=== PATIENT | female | born 1965 | race Caucasian/White ===

== ENCOUNTER → 2017-10-18 | Outpatient (CLI) | payer OTHER | LOC: BMCIMAGING 12:59 | PROVIDERS: ATTEND Emergency Medicine | DX: S62.171A Displaced fracture of trapezium [larger multangular], right wrist, initial encounter for closed fracture (principal); Y93.9 Activity, unspecified ==

== ENCOUNTER 2017-10-19 09:44 | Emergency (ER) | payer OTHER ==
[2017-10-19 09:51] VITALS: RESP 16
[2017-10-19] MEDS ORDERED: ONDANSETRON DISINTEGRATING 4 MG TAB PO ONE ×2 (10:10→11:09)
[2017-10-19] MEDS ORDERED: oxyCODONE IR 5 MG TAB PO ONE (10:10)
--- NOTE | 2017-10-19 10:12 | EDPHY ---
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 PMH: facial abcess x2; ulcerative colitis; partial alopicia; ciliac; hyperthyroid/graves; bechets; vitaligo; paracarditis x4 - Social History Smoking Status: Never smoked Constitutional: Initial Vital Signs Temperature (C) 37.0 C 10/19/17 09:48 Heart Rate 81 10/19/17 09:48 Respiratory Rate 16 10/19/17 09:48 Blood Pressure 113/75 10/19/17 09:48 O2 Sat (%) 97 10/19/17 09:48 O2 Delivery Mode Room Air Allergies/Adverse Reactions: gluten [Gluten] Allergy (Unknown, Verified 08/26/12 09:04) Wheat Containing *RETIRED-06/16/12 [Wheat Containing Prod] Allergy (Unknown, Verified 08/26/12 09:04) oxycodone Allergy (Verified 10/19/17 11:12) Vomiting Sulfa (Sulfonamide Antibiotics) Allergy (Verified 08/26/12 09:04) Home Medications: Medication Instructions Recorded Calcium Carbonate [Oyster Shell 500 mg PO DAILY 04/21/12 Calcium 500 mg (*)] Multivitamins [Multivitamin (*)] 1 each PO DAILY 04/21/12 Zinc Gluconate [Zinc Chelated 50mg 50 mg PO DAILY 08/16/12 (*)] Acetaminophen [Tylenol 325mg (*)] 650 mg PO Q6 PRN #0 tab 08/22/12 Mesalamine [Asacol 400 mg] 1,600 mg PO TID #360 tab 08/22/12 predniSONE 20 mg PO BID #42 tab 08/22/12 Albuterol [Proventil Inhaler HFA 1 - 2 puffs IH Q4PRN PRN #1 mdi 08/12/15 (*)] Aspirin 08/12/15 Codeine/Promethazine [Phenergan W/ 5 ml PO Q6 PRN #1 bottle 08/12/15 Codeine Syrup] IRON 08/12/15 METHIMAZOLE 08/12/15 Hydrocodone/APAP 5/325 [[place] 1 - 2 each PO Q4-6PRN PRN #20 tab 10/19/17 5/325] Ondansetron Odt [Zofran Odt 4 mg 4 mg PO Q4 PRN #10 tab 10/19/17 (RX)] oxyCODONE IR [Oxycodone Ir (*)] 5 - 10 mg PO Q6 PRN #20 tab 10/19/17 Medical Decision Making - Diagnostics Imaging Results: Imaging Impressions Wrist X-Ray 10/19/17 10:11 Impression: Cortical avulsion fracture fragments dorsal to the carpus potentially arising from the lunate or triquetrum, similar to one day earlier. Hand X-Ray 10/19/17 10:32 Impression: 8 mm dorsal cortical avulsion fracture fragment, potentially arising from the lunate (versus triquetrum). Noncontrast CT of the wrist would be of benefit in further evaluation of the donor site as clinically appropriate. Imaging: I viewed and interpreted images myself ED Course/Re-evaluation: CHIEF COMPLAINT: Severe right wrist pain HISTORY OF PRESENT ILLNESS: The patient is a 52 y/o female arriving with her complaining of severe right wrist pain after injuring it yesterday. She tripped and fell on ice landed on her outstretched right arm. Denies head strike or other injuries, weakness, paresthesias. She had pain around her right wrist that she tried to manage at home with NSAIDs and ice without improvement so she went to urgent care. An x-ray there showed a possible fracture and she was placed in a thumbspika splint. Since then she's had waxing and waning pain that is so severe at times she describes screaming and vomiting. She has taken at least 20 pills of ibuprofen in less than 24 hours without any improvement in her pain. She describe pain radiating down her right medial and lateral forearm to elbow and into hand, particularly into 5th finger. REVIEW OF SYSTEMS: A 10 point review of systems was performed and is negative with the exception of the elements mentioned in the history of present illness. PHYSICAL EXAM: HR, BP, O2 Sat, RR. Temp noted General Appearance: Alert, well hydrated, appropriate, and non-toxic appearing. Head: Atraumatic without scalp tenderness or obvious injury Eyes: Pupils equal, round, reactive to light and accommodation, EOMI, no trauma , no injection. Throat: Mucus membranes moist. Neck: Supple Respiratory: No distress Cardiovascular: Right radial pulse intact. Good capillary refill all extremities. Musculoskeletal: Tenderness over right dorsal hand with ecchymosis. Otherwise normal active ROM of all extremities, atraumatic. Neurological: Alert, appropriate, and interactive. The patient has non-focal cranial nerves, motor, sensory, and cerebellar exam. Skin: No rashes, good turgor, no nodules on palpation. PAST MEDICAL HISTORY: Facial abscess x2; ulcerative colitis; partial alopecia; celiac; hyperthyroid/graves; vitiligo; pericarditis x4. PAST SURGICAL HISTORY: Open heart for myxoma tumor removal; hysterectomy; L ankle SOCIAL HISTORY: at bedside. DIAGNOSTICS/PROCEDURES/CRITICAL CARE TIME: Right hand and wrist x-ray: triquetral fracture Procedure: Fracture treatment. The patient had x-rays taken and I confirmed that the patient had a fractured right triquetrum. I do not believe that the patient requires immediate orthopedic consultation, nor do I believe that reduction at a later date will be required. An ortho-glass splint was applied with ample cast padding in a position of function. After application of the splint, I returned and re-examined the patient. The splint was adequately immobilizing the joint and distal to the splint the patient's circulation and sensation was intact. DIFFERENTIAL DIAGNOSIS: The differential diagnosis for the patient's injury included but was not limited to fracture, ligamentous injury, contusion, muscular strain. MEDICAL DECISION MAKING: This is a 52 y/o female who presents with acute right wrist injury secondary to a fall yesterday. She was placed in a thumbspika at urgent care yesterday for possible fracture, but was not given pain medication. She has been unable to control her pain at home and has taken a significant amount of ibuprofen in less than 24 hours in an attempt to address her pain that is likely causing some of her nausea now. She has tenderness and ecchymosis on her dorsal right hand. She is neurovascularly intact. Plan for x-ray to assess for fracture. Possibility of a fracture fragment or nerve injury causing her reported spikes in pain. 10mg OxyIR administered for pain and 4mg PO Zofran. X-ray shows triquetral fracture. Patient will require orthoglass splint that immobilizes her wrist. Reassessed patient after splint placement and discussed standard fracture care and follow up instructions. Script for Vicodin and Zofran. Referral to hand surgery for follow up. Return precautions discussed. - Data Points Medications Given: Discontinued Medications Ondansetron HCl (Zofran Odt) 4 mg PO EDNOW ONE Stop: 10/19/17 10:11 Last Admin: 10/19/17 10:14 Dose: 4 mg Ondansetron HCl (Zofran Odt) 4 mg PO EDNOW ONE Stop: 10/19/17 11:10 Last Admin: 10/19/17 11:10 Dose: 4 mg Oxycodone HCl (Oxycodone Ir) 10 mg PO EDNOW ONE Stop: 10/19/17 10:11 Last Admin: 10/19/17 10:14 Dose: 10 mg Departure - Departure Disposition: Home, Routine, Self-Care Clinical Impression: Triquetral fracture Qualifiers: Encounter type: initial encounter Fracture type: closed Fracture alignment: nondisplaced Laterality: right Qualified Code(s): S62.114A - Nondisplaced fracture of triquetrum [cuneiform] bone, right wrist, initial encounter for closed fracture Condition: Good Instructions: Hand Fracture (ED) Additional Instructions: 1. Take Vicodin as prescribed when needed for pain. 2. Do not use any further ibuprofen for at least several days to weeks. In the future, do not exceed more than 2400mg ibuprofen in a 24 hour period. Increase fluid intake over the next few days so you are urinating every couple hours. 3. Wear sling for comfort. 4. Keep splint in place and dry until cleared by hand specialist. 5. Follow up with hand specialist next week. 6. Use Zofran as prescribed for any nausea or vomiting. 7. Return to the ED for worsening of condition. Referrals: Miladys Cotter MD [[facility] [place] Primary Care Provider] - As per Instructions Manny Herbert MD [Medical Doctor] - As per Instructions Prescriptions: Hydrocodone/APAP 5/325 [Roca 5/325] 1 - 2 each PO Q4-6PRN PRN #20 tab PRN Reason: Pain, Moderate Ondansetron Odt [Zofran Odt 4 mg (RX)] 4 mg PO Q4 PRN #10 tab PRN Reason: Nausea/Vomiting, Use 1st oxyCODONE IR [Oxycodone Ir (*)] 5 - 10 mg PO Q6 PRN #20 tab PRN Reason: Pain, Severe Report Scribed for: Joe Hubbard Report Scribed by: Radha Durham Date of Report: 10/19/17 Time of Report: 11:09
[2017-10-19] MEDS ORDERED: ONDANSETRON DISINTEGRATING 4 MG TAB ONE (11:08)
[2017-10-19 12:18] VITALS: BP 113/62; PULSE 80; TEMP 98.4; O2SAT 96
== END 2017-10-19 12:15 | disposition home or self-care (01) ==
PROC: 2W3EX1Z Immobilization of Right Hand using Splint (ICD-10-PCS; principal; 2017-10-19)
DX: S62.114A Nondisplaced fracture of triquetrum [cuneiform] bone, right wrist, initial encounter for closed fracture (principal); Z79.82 Long term (current) use of aspirin; W01.0XXA Fall on same level from slipping, tripping and stumbling without subsequent striking against object, initial encounter
CPT/HCPCS: A4565

== ENCOUNTER → 2017-10-23 | Outpatient (CLI) | payer OTHER | LOC: BMCIMAGING 14:53 | PROVIDERS: ATTEND Orthopaedic Surgery Hand Surgery | DX: M25.521 Pain in right elbow (principal) ==

== ENCOUNTER 2018-11-30 06:27 | Emergency (ER) | payer OTHER ==
[2018-11-30 06:33] VITALS: BP 126/78
--- NOTE | 2018-11-30 06:52 | EDPHY ---
H & P Time Seen by Provider: 11/30/18 06:52 HPI/ROS: CHIEF COMPLAINT: Left earache HISTORY OF PRESENT ILLNESS: Patient started getting sick about 4 days ago, she said she felt tired and had body aches and had "malaise" mm presented to her primary care physician 2 days ago with a sore throat. She was told she had "tonsil stones" and had a negative strep test. Was treated with ibuprofen and given an amoxicillin prescription which she has taken 2 doses of since last night. Over the last 24 hr her left ear became more painful radiates into her jaw. Associated with nausea. Symptoms severe today, not associated with dental symptoms or headache but with decreased hearing. [place] REVIEW OF SYSTEMS: Eye: no change in vision ENT: HPI Cardiac: no chest pain or syncope Pulmonary: no cough or SOB Abdomen: no vomiting, diarrhea, abdominal pain Musculoskeletal: no back pain Skin: no rash Neuro: no headache Constitutional: no fever : no urinary symptoms A comprehensive 10 point review of systems is otherwise negative aside from elements mentioned in the history of present illness. PAST MEDICAL HISTORY: Includes hypothyroid, myxoma tumor removal, hysterectomy , left ankle surgery. Ulcerative colitis Social history: Lives in [place] General Appearance: Alert and conversant, cooperative. Eyes: No scleral icterus. ENT, Mouth: Left tympanic membrane is swollen and red and bulging. Right 1 is normal. No trismus, pharynx shows slight erythema with 2 1 mm blisters. No exudate, uvula midline, no stridor or drooling, no tonsillar pillar swelling. Respiratory: Normal respiratory effort, breath sounds equal, lungs are clear to auscultation. Cardiovascular: Regular rate and rhythm. Gastrointestinal: Abdomen is soft and non tender. Neurological: Alert, face symmetric, normal motor and sensory in extremities. Skin: Warm and dry, no rashes. Musculoskeletal: Normal range of motion of the neck. Psychiatric: Not agitated. Emergency Department course/MDM: Patient presents with acute left otitis media likely from a viral head cold. She is appropriately taking amoxicillin prescribed by her physician. Recommended decongestant such as Sudafed, hydrocodone 6 for pain and still symptoms are improving (her oxycodone allergy listed is an adverse drug reaction with nausea and vomiting) and Zofran for nausea. Unlikely to have external otitis, epiglottitis, peritonsillar abscess, retropharyngeal abscess. Smoking Status: Never smoked Constitutional: Initial Vital Signs Temperature (C) 37.0 C 11/30/18 06:29 Heart Rate 85 11/30/18 06:29 Respiratory Rate 18 11/30/18 06:29 Blood Pressure 126/78 H 11/30/18 06:29 O2 Sat (%) 99 11/30/18 06:29 O2 Delivery Mode Room Air Allergies/Adverse Reactions: gluten [Gluten] Allergy (Unknown, Verified 11/30/18 06:33) Wheat Containing *RETIRED-06/16/12 [Wheat Containing Prod] Allergy (Unknown, Verified 11/30/18 06:33) oxycodone Allergy (Verified 11/30/18 06:33) Vomiting Sulfa (Sulfonamide Antibiotics) Allergy (Verified 11/30/18 06:33) Home Medications: Medication Instructions Recorded Calcium Carbonate [Oyster Shell 500 mg PO DAILY 04/21/12 Calcium 500 mg (*)] Multivitamins [Multivitamin (*)] 1 each PO DAILY 04/21/12 Zinc Gluconate [Zinc Chelated 50mg 50 mg PO DAILY 08/16/12 (*)] Acetaminophen [Tylenol 325mg (*)] 650 mg PO Q6 PRN #0 tab 08/22/12 Albuterol [Proventil Inhaler HFA 1 - 2 puffs IH Q4PRN PRN #1 mdi 08/12/15 (*)] Aspirin 08/12/15 Codeine/Promethazine [Phenergan W/ 5 ml PO Q6 PRN #1 bottle 08/12/15 Codeine Syrup] IRON 08/12/15 METHIMAZOLE 08/12/15 Hydrocodone/APAP 5/325 [[place] 1 - 2 each PO Q4-6PRN PRN #20 tab 10/19/17 5/325] Ondansetron Odt [Zofran Odt 4 mg 4 mg PO Q4 PRN #10 tab 10/19/17 (RX)] MDM/Departure - MDM Medications Given: Discontinued Medications Hydrocodone Bitart/Acetaminophen ([place] 5/325mg Prepack#6) 1 btl TAKEHOME EDNOW ONE Stop: 11/30/18 07:08 Last Admin: 11/30/18 07:20 Dose: 1 btl Hydrocodone Bitart/Acetaminophen ([place] 5/325) 1 tab PO EDNOW ONE Stop: 11/30/18 07:19 Last Admin: 11/30/18 07:21 Dose: 1 tab Ondansetron HCl (Zofran Odt 4 Mg Prepack#2) 1 btl TAKEHOME EDNOW ONE Stop: 11/30/18 07:08 Last Admin: 11/30/18 07:23 Dose: 1 btl Pseudoephedrine HCl (Sudafed) 30 mg PO EDNOW ONE Stop: 11/30/18 07:08 Last Admin: 11/30/18 07:21 Dose: 30 mg - Depart Disposition: Home, Routine, Self-Care Clinical Impression: Acute otitis media Condition: Good Instructions: Hydrocodone/Acetaminophen (By mouth), Pseudoephedrine (By mouth) , Ondansetron (By mouth), Ear Infection (ED) Additional Instructions: Continue with Sudafed or similar decongestant for the next 48 hr. Follow-up with ear nose and throat physician if not significantly improved by tomorrow. Take your amoxicillin prescription untill finished as prescribed. Referrals: Petra Gomez MD [Primary Care Provider] - As per Instructions Izaiah Urias MD [Medical Doctor] - 1 day, if not improved
[2018-11-30] MEDS ORDERED: PSEUDOEPHEDRINE HCL 30 MG TAB PO ONE (07:07)
[2018-11-30] MEDS ORDERED: ONDANSETRON 4MG PREPACK#2 BTL TAKEHOME ONE (07:07)
[2018-11-30] MEDS ORDERED: HYDROCOD/APAP 5/325 PREPACK#6 BTL TAKEHOME ONE (07:07)
[2018-11-30] MEDS ORDERED: HYDROCODONE/APAP 5/325 TAB PO ONE (07:18)
== END 2018-11-30 07:25 | disposition home or self-care (01) ==
DX: H66.92 Otitis media, unspecified, left ear (principal)

== ENCOUNTER 2018-12-01 19:21 | Inpatient (IN) | payer OTHER ==
--- NOTE | 2018-12-01 19:35 | EDPHY ---
H & P Time Seen by Provider: 12/01/18 19:28 HPI/ROS: HPI: This is a 53-year-old female who presents with Chief Complaint: Dizziness, nausea, vomiting Location: Head Quality: Dizziness Duration: 48 hr Signs and Symptoms: no fever,+ nausea, +vomiting, no diarrhea, no urinary symptoms, no chest pain, no shortness of breath, no wheezing, no cough, +sore throat, no neck stiffness, no joint pain, no swollen glands, + left ear pain, no rash, no aura Timing: Acute, worsening Severity: Severe Context: Patient presents for the 3rd time to the emergency room in the last few days with complaints of left ear pain with clear ear drainage, dizziness described as the room spinning, left-sided temporal headache. Over the last 48 hr the dizziness has worsened to the point that she has nausea and is now dry heaving. She is unable to eat or drink anything in the last 48 hr. She was seen by her primary care provider on Saturday with a negative rapid strep it started on amoxicillin, salt water gargle. She did not start the amoxicillin as she is waiting for the throat culture to result. Yesterday she was seen in this emergency room with worsening left ear pain, dizziness, continued sore throat. She was diagnosed with left otitis media and advised to start taking amoxicillin and Sudafed. She reports that since taking these medications she has had no relief of her symptoms and affect her symptoms are worsening. She even called the Sudafed company to see if Sudafed could cause her nausea, vomiting and ear pain and even could worsen her hyperthyroidism. Patient's last dose of amoxicillin was yesterday. Modifying Factors: See above Comment: ROS: A comprehensive 10 system review of systems is otherwise negative aside from elements mentioned in the history of present illness. MEDICAL/SURGICAL/SOCIAL HISTORY: PSH: open heart for myxoma tumor removal; hysterectomy; L ankle; PMH: facial abcess x2; ulcerative colitis; partial alopicia; ciliac; hyperthyroid/graves; bechets; vitaligo; paracarditis x4, graves dx Social history: . Never smoked. Family history noncontributory. CONSTITUTIONAL: Nontoxic-appearing, lying in the room with the lights off on her left side, cool rag on her forehead, dry heaving into an emesis basin, awake and alert, mild distress HEENT: Atraumatic and normocephalic, PERRL, EOMI. Nares patent; no rhinorrhea; no nasal mucosal edema. Left TM shows effusion but no perforation. Right TM is clear. Oropharynx clear, tonsils 1+ without hypertrophy or erythema, no exudate, uvula midline, moist pink mucosa. Airway patent. No lymphadenopathy. No meningismus. Cardiovascular: Normal S1/S2, regular rate, regular rhythm, without murmur rub or gallop. PULMONARY/CHEST: Symmetrical and nontender. Clear to auscultation bilaterally. Good air movement. No accessory muscle usage. ABDOMEN: Soft, nondistended, nontender, no rebound, no guarding, no peritoneal signs, no masses or organomegaly. No CVAT. EXTREMITIES: 2/2 pulses, strength 5/5, no deformities, no clubbing, no cyanosis or edema. NEUROLOGICAL: no focal neuro deficits. GCS 15. SKIN: Warm and dry, no erythema. no rash. Good capillary refill. Source: Patient Exam Limitations: No limitations - Medical/Surgical History Hx Asthma: No Hx Chronic Respiratory Disease: No Hx Diabetes: No Hx Cardiac Disease: No Hx Renal Disease: No Hx Cirrhosis: No Hx Alcoholism: No Hx HIV/AIDS: No Hx Splenectomy or Spleen Trauma: No Other PMH: PSH: open heart for myxoma tumor removal; hysterectomy; L ankle;. PMH: facial abcess x2; ulcerative colitis; partial alopicia; ciliac; hyperthyroid/graves; bechets; vitaligo; paracarditis x4, graves dx - Social History Smoking Status: Never smoked Constitutional: Initial Vital Signs Temperature (C) 36.7 C 12/01/18 19:28 Heart Rate 70 12/01/18 19:28 Respiratory Rate 16 12/01/18 19:28 Blood Pressure 107/58 L 12/01/18 19:28 O2 Sat (%) 99 12/01/18 19:28 O2 Delivery Mode Room Air Allergies/Adverse Reactions: gluten [Gluten] Allergy (Unknown, Verified 12/01/18 19:26) Wheat Containing *RETIRED-06/16/12 [Wheat Containing Prod] Allergy (Unknown, Verified 12/01/18 19:26) amoxicillin Allergy (Verified 12/01/18 19:27) oxycodone Allergy (Verified 12/01/18 19:26) Vomiting Sulfa (Sulfonamide Antibiotics) Allergy (Verified 12/01/18 19:26) Home Medications: Medication Instructions Recorded Calcium Carbonate [Oyster Shell 500 mg PO DAILY 04/21/12 Calcium 500 mg (*)] Multivitamins [Multivitamin (*)] 1 each PO DAILY 04/21/12 Zinc Gluconate [Zinc Chelated 50mg 50 mg PO DAILY 08/16/12 (*)] Acetaminophen [Tylenol 325mg (*)] 650 mg PO Q6 PRN #0 tab 08/22/12 Albuterol [Proventil Inhaler HFA 1 - 2 puffs IH Q4PRN PRN #1 mdi 08/12/15 (*)] Aspirin 08/12/15 Codeine/Promethazine [Phenergan W/ 5 ml PO Q6 PRN #1 bottle 08/12/15 Codeine Syrup] IRON 08/12/15 METHIMAZOLE 08/12/15 Hydrocodone/APAP 5/325 [[place] 1 - 2 each PO Q4-6PRN PRN #20 tab 10/19/17 5/325] Ondansetron Odt [Zofran Odt 4 mg 4 mg PO Q4 PRN #10 tab 10/19/17 (RX)] Medical Decision Making - Diagnostics Imaging Results: Imaging Impressions Head CT 12/01/18 19:53 Impression: 1. Negative for intracranial abnormality. 2. Chronic appearing sinusitis. Results called and discussed with Tamar SUAREZ on 12/01/2018 at 20:39. ED Course/Re-evaluation: Vital signs reviewed and stable upon arrival. No systemic signs. Placed on ekg monitor. IV access, laboratory studies, head CT scan ordered Given 1 L normal saline, IV Ativan 1 mg and IV Zofran 4 mg 2039: By Radiology, Dr. Sifuentes, who reports that head CT scan shows no acute intracranial process. Does show chronic bilateral maxillary sinus disease. 2133: Reassessed patient is sleeping soundly. No further episodes of vomiting. Vital signs remained stable. Given another 1 L normal saline, PO Augmentin and p.o. Meclizine 12.5 mg Augmentin ordered but patient state Amoxicillin allergy now. PO Azithromycin given for prophylaxis left otitis/sinus disease 0: TSH low normal 2250: Road test performed by [employer]. Patient unable to ambulate without moderate assistance and complained of nausea and dizziness. 2305: ED decision to consult hospitalist for viral labyrinthitis, eustachian tube dysfunction, vertigo is secondary to inner ear disease, intractable nausea and vomiting. Spoke with [facility] who kindly agrees to admit patient and provide further care. This patient was seen under the supervision of my secondary supervising physician. I evaluated care for this patient with attending. Discussed this patient with Dr. Hubbard. Differential Diagnosis: Dizziness including but not limited to peripheral and central causes of vertigo , orthostatic causes including dehydration, and blood loss. - Data Points Laboratory Results: Laboratory Results 12/01/18 19:35 12/01/18 19:35 12/01/18 12/01/18 12/01/18 19:35 19:35 19:35 WBC 11.19 10^3/uL H 10^3/uL (3.80-9.50) RBC 4.95 10^6/uL 10^6/uL (4.18-5.33) Hgb 13.3 g/dL g/dL (12.6-16.3) Hct 40.8 % % (38.0-47.0) MCV 82.4 fL fL (81.5-99.8) MCH 26.9 pg L pg (27.9-34.1) MCHC 32.6 g/dL g/dL (32.4-36.7) RDW 12.7 % % (11.5-15.2) Plt Count 295 10^3/uL 10^3/uL (150-400) MPV 10.2 fL fL (8.7-11.7) Neut % (Auto) 81.0 % H % (39.3-74.2) Lymph % (Auto) 12.2 % L % (15.0-45.0) Cass % (Auto) 6.3 % % (4.5-13.0) Eos % (Auto) 0.0 % L % (0.6-7.6) Baso % (Auto) 0.1 % L % (0.3-1.7) Nucleat RBC Rel Count 0.0 % % (0.0-0.2) Absolute Neuts (auto) 9.07 10^3/uL H 10^3/uL (1.70-6.50) Absolute Lymphs (auto) 1.36 10^3/uL 10^3/uL (1.00-3.00) Absolute Monos (auto) 0.71 10^3/uL 10^3/uL (0.30-0.80) Absolute Eos (auto) 0.00 10^3/uL L 10^3/uL (0.03-0.40) Absolute Basos (auto) 0.01 10^3/uL L 10^3/uL (0.02-0.10) Absolute Nucleated RBC 0.00 10^3/uL 10^3/uL (0-0.01) Immature Gran % 0.4 % % (0.0-1.1) Immature Gran # 0.04 10^3/uL 10^3/uL (0.00-0.10) Sodium 132 mEq/L L mEq/L (135-145) Potassium 4.2 mEq/L mEq/L (3.5-5.2) Chloride 97 mEq/L mEq/L (97-110) Carbon Dioxide 25 mEq/l mEq/l (22-31) Anion Gap 10 mEq/L mEq/L (6-14) BUN 15 mg/dL mg/dL (7-23) Creatinine 0.6 mg/dL mg/dL (0.6-1.0) Estimated GFR > 60 Glucose 113 mg/dL H mg/dL (70-100) Calcium 9.7 mg/dL mg/dL (8.5-10.4) TSH 0.162 uIU/mL L uIU/mL (0.465-4.680) Beta HCG, Qual NEGATIVE Medications Given: Discontinued Medications Azithromycin (Zithromax) 500 mg PO EDNOW ONE PRN Reason: Protocol Stop: 12/01/18 21:57 Last Admin: 12/01/18 22:24 Dose: 500 mg Sodium Chloride (Ns) 1,000 mls @ 0 mls/hr IV ONCE ONE; Wide Open PRN Reason: Protocol Stop: 12/01/18 19:53 Last Admin: 12/01/18 20:00 Dose: 1,000 mls Sodium Chloride (Ns) 1,000 mls @ 0 mls/hr IV EDNOW ONE; Wide Open PRN Reason: Protocol Stop: 12/01/18 21:29 Last Admin: 12/01/18 21:32 Dose: 1,000 mls Lorazepam (Ativan Injection) 1 mg IVP EDNOW ONE Stop: 12/01/18 19:53 Last Admin: 12/01/18 19:58 Dose: 1 mg Meclizine HCl (Meclizine Hcl) 12.5 mg PO EDNOW ONE Stop: 12/01/18 21:29 Last Admin: 12/01/18 21:32 Dose: 12.5 mg Ondansetron HCl (Zofran) 4 mg IVP EDNOW ONE Stop: 12/01/18 19:53 Last Admin: 12/01/18 19:58 Dose: 4 mg Departure - Departure Disposition: [facility] Inpatient Acute Clinical Impression: Dysfunction of left eustachian tube, Vertigo of central origin of left ear Intractable nausea and vomiting Qualifiers: Vomiting type: unspecified Qualified Code(s): R11.2 - Nausea with vomiting, unspecified Condition: Fair
[2018-12-01] MEDS ORDERED: LORazepam 2 MG/ML INJ IVP ONE (19:52)
[2018-12-01] MEDS ORDERED: NS 1,000 ML IV ONE ×2 (19:52→21:28)
[2018-12-01] MEDS ORDERED: ONDANSETRON 4 MG/2 ML VIAL IVP ONE (19:52)
[2018-12-01 20:03] LABS: PLATELET COUNT 295 10^3/uL (150-400)
[2018-12-01] MEDS ORDERED: MECLIZINE HCL 25 MG TAB PO ONE (21:28)
[2018-12-01] MEDS ORDERED: AZITHROMYCIN 250 MG TAB PO ONE (21:56)
[2018-12-01] MEDS ORDERED: ONDANSETRON DISINTEGRATING 4 MG TAB PO PRN (23:04)
[2018-12-01] MEDS ORDERED: PROMETHAZINE HCL 25 MG/ML INJ IVP PRN (23:04)
[2018-12-02] MEDS: NS 1,000 ML IV SCH ×2 (00:25→09:57)
--- NOTE | 2018-12-02 00:36 | PDGENHP ---
History and Physical - Chief Complaint Dizziness, nausea - History of Present Illness 53 yo F w/ hx of hyperthyroidism presents with dizziness and nausea. The patient has had URI symptoms for several days (sore throat, malaise). Then 2 days ago she developed L ear pain. She was seen in the ED and diagnosed with L otitis media. She started amoxicillin and pseudoephedrine for this but the became very dizzy and nauseous. This persisted for 24 hours so she came to the ED for evaluation. In the ED she continues to be dizzy, although symptoms improved with anti-emetics. CT head was unremarkable. She is being admitted for supportive care of presumed viral labyrinthitis. Case discussed with ED DANIELA Shay; records reviewed and summarized above. History Information - Allergies/Home Medication List Allergies/Adverse Reactions: gluten [Gluten] Allergy (Unknown, Verified 12/01/18 19:26) Wheat Containing *RETIRED-06/16/12 [Wheat Containing Prod] Allergy (Unknown, Verified 12/01/18 19:26) amoxicillin Allergy (Verified 12/01/18 19:27) oxycodone Allergy (Verified 12/01/18 19:26) Vomiting Sulfa (Sulfonamide Antibiotics) Allergy (Verified 12/01/18 19:26) Home Medications: Calcium Carbonate [Oyster Shell Calcium 500 mg (*)] 500 mg PO DAILY 04/21/12 [ Last Taken 08/02/12] Multivitamins [Multivitamin (*)] 1 each PO DAILY 04/21/12 [Last Taken 08/02/12] Zinc Gluconate [Zinc Chelated 50mg (*)] 50 mg PO DAILY 08/16/12 [Last Taken 07/18] Aspirin 08/12/15 [Last Taken Unknown] IRON 08/12/15 [Last Taken Unknown] METHIMAZOLE 08/12/15 [Last Taken Unknown] I have personally reviewed and updated: family history, medical history - Past Medical History Additional medical history: Hyperthyroid - Surgical History Additional surgical history: Myxoma resection. Sinus surgery - Family History Additional family history: Asked, denies - Social History Smoking Status: Never smoked Review of Systems Review of Systems: ROS: 10pt was reviewed & negative except for what was stated in HPI & below Physical Exam Physical Exam: Temp Pulse Resp BP Pulse Ox 36.9 C 79 16 99/54 L 94 12/02/18 00:22 02/26/19 00:22 12/02/18 00:22 12/02/18 00:22 12/02/18 00:22 Constitutional: appears nourished, uncomfortable Eyes: PERRL, EOMI Ears, Nose, Mouth, Throat: moist mucous membranes, no oral mucosal ulcers Cardiovascular: regular rate and rhythym Respiratory: no respiratory distress, clear to auscultation Gastrointestinal: normoactive bowel sounds, soft, non-tender abdomen Skin: warm, normal color Musculoskeletal: full muscle strength, no muscle tenderness Neurologic: AAOx3, CN II-XII Intact Psychiatric: interacting appropriately, not anxious Lab Data & Imaging Review 12/01/18 19:35 12/01/18 19:35 WBC 11.19 10^3/uL (3.80-9.50) H 12/01/18 19:35 RBC 4.95 10^6/uL (4.18-5.33) 12/01/18 19:35 Hgb 13.3 g/dL (12.6-16.3) 12/01/18 19:35 Hct 40.8 % (38.0-47.0) 12/01/18 19:35 MCV 82.4 fL (81.5-99.8) 12/01/18 19:35 MCH 26.9 pg (27.9-34.1) L 12/01/18 19:35 MCHC 32.6 g/dL (32.4-36.7) 12/01/18 19:35 RDW 12.7 % (11.5-15.2) 12/01/18 19:35 Plt Count 295 10^3/uL (150-400) 12/01/18 19:35 MPV 10.2 fL (8.7-11.7) 12/01/18 19:35 Neut % (Auto) 81.0 % (39.3-74.2) H 12/01/18 19:35 Lymph % (Auto) 12.2 % (15.0-45.0) L 12/01/18 19:35 Edmunds % (Auto) 6.3 % (4.5-13.0) 12/01/18 19:35 Eos % (Auto) 0.0 % (0.6-7.6) L 12/01/18 19:35 Baso % (Auto) 0.1 % (0.3-1.7) L 12/01/18 19:35 Nucleat RBC Rel Count 0.0 % (0.0-0.2) 12/01/18 19:35 Absolute Neuts (auto) 9.07 10^3/uL (1.70-6.50) H 12/01/18 19:35 Absolute Lymphs (auto) 1.36 10^3/uL (1.00-3.00) 12/01/18 19:35 Absolute Monos (auto) 0.71 10^3/uL (0.30-0.80) 12/01/18 19:35 Absolute Eos (auto) 0.00 10^3/uL (0.03-0.40) L 12/01/18 19:35 Absolute Basos (auto) 0.01 10^3/uL (0.02-0.10) L 12/01/18 19:35 Absolute Nucleated RBC 0.00 10^3/uL (0-0.01) 12/01/18 19:35 Immature Gran % 0.4 % (0.0-1.1) 12/01/18 19:35 Immature Gran # 0.04 10^3/uL (0.00-0.10) 12/01/18 19:35 Sodium 132 mEq/L (135-145) L 12/01/18 19:35 Potassium 4.2 mEq/L (3.5-5.2) 12/01/18 19:35 Chloride 97 mEq/L (97-110) 12/01/18 19:35 Carbon Dioxide 25 mEq/l (22-31) 12/01/18 19:35 Anion Gap 10 mEq/L (6-14) 12/01/18 19:35 BUN 15 mg/dL (7-23) 12/01/18 19:35 Creatinine 0.6 mg/dL (0.6-1.0) 12/01/18 19:35 Estimated GFR > 60 12/01/18 19:35 Glucose 113 mg/dL (70-100) H 12/01/18 19:35 Calcium 9.7 mg/dL (8.5-10.4) 12/01/18 19:35 TSH 0.162 uIU/mL (0.465-4.680) L 12/01/18 19:35 Beta HCG, Qual NEGATIVE 12/01/18 19:35 Imaging Review: Imaging Impressions Head CT 12/01/18 19:53 Impression: 1. Negative for intracranial abnormality. 2. Chronic appearing sinusitis. Results called and discussed with Tamar SUAREZ on 12/01/2018 at 20:39. Assessment & Plan Assessment: 53 yo F presents with dizziness and nausea after recent diagnosis of L otitis media. Plan: 1. Vertigo - Likely viral, vestibular neuritis noting recent URI symptoms. CT head on admission unremarkable. - Admit for observation - mIVF, anti-emetics, meclizine PRN 2. L otitis media - Diagnosed during ED visit 11/30. Her TM remains mildly erythematous on my exam. - Amoxicillin changed to azithromycin today due to difficulty tolerating the medication - Will continue azithromycin to finish 5 day course 3. Hyperthyroid - Continue methimazole pending reconciliation Diet - Clears, mIVF, ADAT Code - Full Ppx - LMWH Dispo - Admit under observation status
[2018-12-02] MEDS: ACETAMINOPHEN 325 MG TAB PO PRN ×2 (04:59→20:26)
[2018-12-02 05:08] LABS: PLATELET COUNT 284 10^3/uL (150-400)
--- NOTE | 2018-12-02 09:10 | HOSPPROG ---
Hospitalist Progress Note Assessment/Plan: DIAGNOSES: * Acute infectious vestibulitis with vertigo nausea vomiting * Otitis media, complicated by tympanic membrane perforation * Upper respiratory infection * Laryngitis * Microcytic anemia with suspicion for iron deficiency PLANS: * Continue current antibiotic * Continue meclizine * Will add some prednisone at this time * ENT consult * Encouraged her to whisper and minimize speaking due to laryngitis * Will check iron levels in the morning and recheck her hemoglobin * Due to ongoing significant vertigo and nausea will continue to manage here in the hospital at least 1 more night, change to inpatient SUBJECTIVE: Less vertigo and nausea so far today but still with significant symptoms requiring medication, has not attempted walking or eating or drinking Mentions fluid draining from her left ear at this point Ear pain somewhat decreased but still present Has developed hoarse voice OBJECTIVE Vitals reviewed: 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 without fever 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, my review: Exam: alert oriented looks very tired Still with nystagmus Looks fairly uncomfortable due to vertigo nausea Hypophonia related to laryngitis is very obvious skin warm dry color ok resps not labored lungs clear BSs heart regular Abdomen normal iv site ok Lab data: White blood cell count remains elevated 10.5, predominance of neutrophils Hemoglobin decreased at 11.4 and is microcytic at 81 MCV Basic metabolic panel is unremarkable Objective: Vital Signs Temp Pulse Resp BP Pulse Ox 36.7 C 76 16 96/60 L 96 12/02/18 07:53 12/02/18 07:53 12/02/18 07:53 12/02/18 07:53 12/02/18 07:53 Laboratory Results 12/02/18 04:33 12/02/18 04:33 12/01/18 12/02/18 12/03/18 06:59 06:59 06:59 Intake Total 3150 Balance 3150 ICD10 Worksheet Patient Problems: Problems Problem Status Onset Dysfunction of left eustachian tube Acute Intractable nausea and vomiting Acute Vertigo of central origin of left ear Acute
[2018-12-02] MEDS: ENOXAPARIN 40 MG/0.4 ML SYR SC SCH (09:46)
[2018-12-02] MEDS: AZITHROMYCIN 250 MG TAB PO SCH (09:46)
[2018-12-02] MEDS: predniSONE 20 MG TAB PO SCH (09:46)
--- NOTE | 2018-12-02 12:29 | ASMTCMCOM ---
CM Note CM Note Notes: Patient plan of care reviewed in rounds. She is still symptomatic from her URI and ear infection. Refused am meclizine but still has some c/o dizziness, No current needs identified as she lives independent with her . Plan: Likely home no needs when medically cleared for discharge. Date Signed: 12/02/2018 12:28 PM Electronically Signed By:Doris Ferrari RN
[2018-12-02] MEDS: MECLIZINE HCL 12.5 MG TAB PO PRN (14:49)
[2018-12-03] MEDS: NS 1,000 ML IV SCH ×2 (02:00→22:33)
[2018-12-03] MEDS: ACETAMINOPHEN 325 MG TAB PO PRN ×2 (08:00→20:37)
[2018-12-03] MEDS: ENOXAPARIN 40 MG/0.4 ML SYR SC SCH (08:59)
[2018-12-03] MEDS: predniSONE 20 MG TAB PO SCH (09:00)
[2018-12-03] MEDS: ASPIRIN 81 MG CHEWABLE TAB PO SCH (09:00)
[2018-12-03] MEDS: MULTIVITAMINS 1 EACH TAB PO SCH (09:00)
[2018-12-03] MEDS: AZITHROMYCIN 250 MG TAB PO SCH (09:00)
[2018-12-03] MEDS: METHIMAZOLE 5 MG TAB PO SCH (09:02)
[2018-12-03] MEDS: MECLIZINE HCL 12.5 MG TAB PO PRN (10:07)
--- NOTE | 2018-12-03 12:59 | PDMN ---
Medical Necessity Medical necessity: Change to inpt as of 12/02/18 @ 18:14, pt meets inpt criteria per MD order and Head and Neck Disease [facility]. 53 y/o admitted w/acute vestibulitis w/vertigo, nausea, and vomiting, otitis media complicated by tympanic membrane perf, URI, and microcytic anemia w/susp iron deficiency. Upgraded to inpt for ongoing symptoms of vertigo, nausea, and pain requiring meds. Est LOS>2MN for ongoing management of above.
--- NOTE | 2018-12-03 16:42 | PDDCSUM ---
Discharge Summary Discharge Summary: DISCHARGE DIAGNOSES: * Acute severe vertigo * Acute otitis media * Perforated left tympanic membrane * Viral upper respiratory tract infection * Intractable nausea vomiting * Dehydration\ HOSPITAL COURSE SUMMARY: This patient initially developed upper respiratory infection type symptoms with some mild pharyngitis but eventually developed some significant left ear pain, severe vertigo with intractable nausea vomiting in inability to ambulate safely. She came into the ER and was admitted the hospital. She had been treated initially with some amoxicillin outpatient a but was changed to azithromycin here. In the hospital she started having significant purulent drainage from her left auditory canal along with some improvement in her pain and vertigo. His presume she has a perforated tympanic membrane. She continued on treatment here with decongestants and prednisone and antibiotics and her symptoms have improved remarkably. She is still dizzy but she is able to walk without difficulty at this time. She is eating and drinking and not requiring antiemetics. She has minimal ear discomfort, mild left ear tinnitus, and mild non vertiginous dizziness. She appears stable for discharge from the hospital at this time. I have arranged for her to have an appointment tomorrow at [facility]. I have instructed her to avoid driving, avoid being on ladders or moves or other places from which she might fall. I have instructed her to be very careful on slippery surfaces such as icy or snowy surfaces or what floors. PENDING TEST RESULTS: None MEDICATION CHANGES: Addition of Nabil-Synephrine nasal spray for the next 3 days Addition of a azithromycin 250 mg daily for 2 days further Addition of prednisone 20 mg daily for 3 days further FOLLOW-UP PLAN: ENT Clinic tomorrow morning and with primary care as needed Greater than 35 minutes bedside and care coordination time today
--- NOTE | 2018-12-03 21:50 | HOSPPROG ---
Hospitalist Progress Note Assessment/Plan: On my intial visit with the patient today she felt stable for DC to home, but on further ambulation she felt still unsteady on her feet with dysequilibrium. She did not feel safe for discharge to home, nor confident she would be able to avoid a need to come to ER for care during night. 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, my review: Exam: alert oriented looks very tired Still with nystagmus Looks fairly uncomfortable due to vertigo nausea Hypophonia related to laryngitis is very obvious skin warm dry color ok resps not labored lungs clear BSs heart regular Abdomen normal iv site ok Objective: Vital Signs Temp Pulse Resp BP Pulse Ox 36.6 C 67 16 105/72 96 12/03/18 19:47 12/03/18 20:45 12/03/18 19:47 12/03/18 20:45 12/03/18 19:47 12/02/18 12/03/18 12/04/18 06:59 06:59 06:59 Intake Total 1500 Balance 1500 - Time Spent With Patient Time Spent with Patient: greater than 35 minutes Time Spent with Patient: Greater than 35 minutes spent on this patients care, greater than 50% of time spent counseling, educating, and coordinating care regarding the above mentioned plan. ICD10 Worksheet Patient Problems: Problems Problem Status Onset Dysfunction of left eustachian tube Acute Intractable nausea and vomiting Acute Vertigo of central origin of left ear Acute
[2018-12-04] MEDS: ACETAMINOPHEN 325 MG TAB PO PRN ×2 (07:53→20:22)
[2018-12-04] MEDS: NS 1,000 ML IV SCH ×2 (07:54→20:23)
[2018-12-04] MEDS: predniSONE 20 MG TAB PO SCH (08:50)
[2018-12-04] MEDS: ASPIRIN 81 MG CHEWABLE TAB PO SCH (08:50)
[2018-12-04] MEDS: METHIMAZOLE 5 MG TAB PO SCH (08:51)
[2018-12-04] MEDS: MULTIVITAMINS 1 EACH TAB PO SCH (08:51)
[2018-12-04] MEDS: ENOXAPARIN 40 MG/0.4 ML SYR SC SCH (08:52)
[2018-12-04] MEDS: AZITHROMYCIN 250 MG TAB PO SCH (08:54)
[2018-12-04] MEDS: AMOXICILLIN/CLAVULANATE POT 875/125 MG TAB PO SCH (20:22)
--- NOTE | 2018-12-04 21:18 | HOSPPROG ---
Hospitalist Progress Note Assessment/Plan: DIAGNOSES: * Acute RUE abdominal pain onset today with tenderness in right upper quadrant; concern for acalculous cholecystitis * Acute infectious vestibulitis with vertigo nausea vomiting * Otitis media, complicated by tympanic membrane perforation and acute hearing loss left ear * Upper respiratory infection * Laryngitis * Iron deficiency anemia, no noted bleeding, history of ulcerative colitis and celiac disease on celiac diet, status post hysterectomy years ago. Unclear if this is due to GI losses or malabsorption. She was seen in the ENT clinic today and they agreed with the diagnoses here but have recommended increasing her steroid and changing to Augmentin Regarding Augmentin there is a an amoxicillin allergy listed but when I question the patient there is really not a very good story for any penicillin allergy, and she did take 2 days of Augmentin just before this admission without any rash hives or other allergic type response. PLANS: * I have ordered a HIDA scan but this will not be able to be done until tomorrow due to availability of tracer; follow closely for signs of infection, though she is on antibiotics here at this time; if HIDA scan abnormal may need to recommend cholecystectomy at this time with possibility of acalculous cholecystitis * Changed to Augmentin for antibiotic * Increase prednisone to 60 mg daily at this time * Recommend she follow up with her waistline joiner overlock in the outpatient clinic to determine why she remains iron deficient and determine whether she can be treated with supplements or will need IV replacement, or if there is more specific or aggressive treatment needed for 1 of her bowel issues Seen by me on hospitals rounds and multidisciplinary rounds today SUBJECTIVE: Today she complains of new onset of right upper quadrant abdominal pain with some anorexia and mild nausea No fever Still some earache, left ear tinnitus, decreased hearing left ear, drainage from left ear Vertigo remains minimal with some mild dizziness but is ambulating well I reviewed the patient her abnormal iron studies. She tells me that she has a history of both ulcerative colitis and biopsy documented celiac disease. She has been very meticulous about her celiac diet, and has not had any other symptoms of celiac disease for some time. She has not noticed any bleeding from her gut and has had a hysterectomy 5 years ago. She did have colonoscopy and upper endoscopy apparently within the last year. OBJECTIVE Vitals reviewed: Stable without fever Intelligence Engineer, my review: Exam: alert oriented better energy today Nystagmus resolved Hypophonia resolved skin warm dry color ok resps not labored lungs clear BSs heart regular Abdomen focal tenderness with guarding but no rebound or mass in the right upper quadrant, bowel sounds present iv site ok Laboratory data: Order liver panel which is now been done and is normal Imaging: I ordered abdominal ultrasound which showed diffuse gallbladder wall thickening without gallstones Objective: Vital Signs Temp Pulse Resp BP Pulse Ox 36.6 C 60 16 117/77 95 12/04/18 19:18 12/04/18 19:18 12/04/18 19:18 12/04/18 19:18 12/04/18 19:18 12/03/18 12/04/18 12/05/18 06:59 06:59 06:59 Intake Total 1900 1000 Balance 1900 1000 - Time Spent With Patient Time Spent with Patient: greater than 35 minutes Time Spent with Patient: Greater than 35 minutes spent on this patients care, greater than 50% of time spent counseling, educating, and coordinating care regarding the above mentioned plan. ICD10 Worksheet Patient Problems: Problems Problem Status Onset Dysfunction of left eustachian tube Acute Intractable nausea and vomiting Acute Vertigo of central origin of left ear Acute
[2018-12-04] MEDS: MELATONIN 3 MG TAB PO SCH (23:00)
[2018-12-05] MEDS: METHIMAZOLE 5 MG TAB PO SCH (09:42)
[2018-12-05] MEDS: AMOXICILLIN/CLAVULANATE POT 875/125 MG TAB PO SCH ×2 (09:43→21:45)
[2018-12-05] MEDS: NS 1,000 ML IV SCH (09:46)
[2018-12-05] MEDS: predniSONE 20 MG TAB PO SCH (10:35)
[2018-12-05] MEDS: ONDANSETRON 4 MG/2 ML VIAL IVP PRN ×2 (10:49→18:53)
[2018-12-05] MEDS: ENOXAPARIN 40 MG/0.4 ML SYR SC SCH (15:01)
[2018-12-05] MEDS: ASPIRIN 81 MG CHEWABLE TAB PO SCH (15:01)
[2018-12-05] MEDS: MULTIVITAMINS 1 EACH TAB PO SCH (15:02)
[2018-12-05] MEDS ORDERED: BUPIVACAINE 0.5% 30 ML SDV ONE (15:14)
[2018-12-05] MEDS ORDERED: LR 1,000 ML IV ONE (15:30)
[2018-12-05] MEDS ORDERED: ceFAZolin 2 GM/DEXTROSE 100 ML IV ONE (15:30)
--- NOTE | 2018-12-05 16:01 | GCON ---
[f rep st] CONSULTATION SURGICAL CONSULT NOTE DATE OF CONSULTATION: 12/05/2018 CHIEF COMPLAINT: Right upper quadrant pain. HISTORY OF PRESENT ILLNESS: 53 year old woman who was initially admitted for for intractable nausea and vomiting and dizziness associated with acute infectious vestibulitis. She has also been diagnosed with otitis media, complicated by tympanic membrane perforation. She then developed acute onset right upper quadrant abdominal pain that started Saturday night after dinner but persisted into the next morning. She reports her right upper quadrant epigastric area is tender to palpation and distended. She has mild nausea, normal bowel movements. She has never had any similar prior episodes. Blood work shows a normal liver panel. Abdominal ultrasound shows diffuse gallbladder wall thickening with no cholelithiasis. HIDA scan reveals chronic cholecystitis. No obstruction of gallbladder. She is currently on Augmentin and prednisone. PREVIOUS MEDICAL HISTORY: Significant for hyperthyroid; ulcerative colitis, in remission; and celiac disease. PREVIOUS SURGICAL HISTORY: Myxoma resection, hysterectomy. FAMILY HISTORY: Diabetes mellitus on mother's side. Father with kidney disease status post kidney transplant. SOCIAL HISTORY: Never smoker. MEDICATIONS: Methimazole; 81 mg aspirin daily. ALLERGIES: Amoxicillin, oxycodone, sulfa, gluten. PHYSICAL EXAM: GENERAL: Well groomed, well-nourished woman in no apparent distress sitting in chair. HEENT: Mucous membranes moist. Normocephalic, atraumatic. No gross hearing deficits. Eyes: Sclerae anicteric, pupils equal in size. LUNGS: Clear to auscultation bilaterally. No rhonchi, wheezes, or rales. No increased work of breathing. CARDIOVASCULAR: Heart rate regular and no peripheral edema. ABDOMEN: Right upper quadrant epigastric area distended, firm, tender to palpation. Positive bowel sounds. SKIN: Warm and dry. MUSCULOSKELETAL: Normal gait. Normal nails. PSYCH: Normal affect and mood. NEURO: Grossly intact. ASSESSMENT AND PLAN: This is a 53-year-old woman with acute right upper quadrant pain. Imaging is consistent with chronic cholecystitis. After surgical consult with the patient, agreed that moving forward with surgery today to remove her gallbladder will alleviate her symptoms. I discussed the risks of surgery including, but not limited to, stroke, heart attack, , and blood clots. We also discussed that she could have an infection, superficial or deep, bleeding, possibility of converting to open, damage to surrounding structures such as the bowel or blood vessels, or damage to the bile duct. Some complications require further intervention including reconstructive surgery. She had her questions answered to her satisfaction and signed the informed consent. Surgery is scheduled for this afternoon. /[id number]/MODL MTDD
--- NOTE | 2018-12-05 16:09 | ASMTCMCOM ---
CM Note CM Note Notes: Patient discussed in medical rounds. Imaging returned consistent with chronic cholecystitis resulting in lap/cornelia later today. CM to follow. Discharge plan: TBD Date Signed: 12/05/2018 04:08 PM Electronically Signed By:Loreto Mota
--- NOTE | 2018-12-05 16:30 | POSTANESTH ---
Post Anesthetic Evaluation Cardiovascular Status: Normal, Stable Respiratory Status: Normal, Stable Level of Consciousness/Mental Status: Can Participate in Eval, Mildly Sleepy, Arousable Pain Control: Adequate, Prn Tx Ordered Nausea/Vomiting Control: Inadeq, Add Tx Reqired Complications Possibly Related to Anesthesia: None Noted
--- NOTE | 2018-12-05 16:41 | PDANEPAE ---
ANE History of Present Illness 53 yo female admitted initially with L otitis media/L labyrinthitis/N/V then developed RUQ pain and anorexia for lap cornelia. ANE Past Medical History - Cardiovascular History Hx Hypertension: No Hx Arrhythmias: No Hx Chest Pain: No Hx Coronary Artery / Peripheral Vascular Disease: No Hx CHF / Valvular Disease: No Hx Palpitations: No - Pulmonary History Hx COPD: No Hx Asthma/Reactive Airway Disease: No Hx Recent Upper Respiratory Infection: Yes Hx Oxygen in Use at Home: No Hx Sleep Apnea: No Sleep Apnea Screening Result - Last Documented: Negative Pulmonary History Comment: URI, L otitis media, L labyrinthitis - Endocrine History Hx Diabetes: No Hypothyroid: No Hyperthyroid: Yes Obesity: no - Renal History Hx Renal Disorders: No - Liver History Hx Hepatic Disorders: No - GI History Hx Gastrointestinal Disorders: Yes Gastrointestinal History Comment: ulcerative colitis, celiac disease by pt report - Chronic Pain History Chronic Pain: No ANE Review of Systems Review of Systems: - Systems Constitutional: Reports: malaise, recent illness EENMT: Reports: ear discharge, ear pain Respiratory: Reports: cough Gastrointestinal: Reports: abdominal pain, nausea Neurological: Reports: other (dizziness) ANE Patient History - Allergies Allergies/Adverse Reactions: gluten [Gluten] Allergy (Unknown, Verified 12/01/18 19:26) Wheat Containing *RETIRED-06/16/12 [Wheat Containing Prod] Allergy (Unknown, Verified 12/01/18 19:26) oxycodone Allergy (Verified 12/01/18 19:26) Vomiting Sulfa (Sulfonamide Antibiotics) Allergy (Verified 12/01/18 19:26) - Home Medications Home Medications: Multivitamins [Multivitamin (*)] 1 each PO DAILY 04/21/12 [Last Taken 12/01/18] Aspirin [Aspirin 81mg (*)] 81 mg PO DAILY 08/12/15 [Last Taken 12/01/18] Methimazole 10 mg PO DAILY 08/12/15 [Last Taken 12/01/18] Ibuprofen [Motrin (*)] 200 mg PO TID PRN 12/02/18 [Last Taken Unknown] - NPO status NPO Since - Liquids (Date): 12/05/18 NPO Since - Liquids (Time): 00:00 NPO Since - Solids (Date): 12/05/18 NPO Since - Solids (Time): 00:00 - Anes Hx Anes Hx: post operative nausea and vomiting - Smoking Hx Smoking Status: Never smoked - Family Anes Hx Family Anes Hx: neg - N/A ANE Labs/Vital Signs - Labs Result Diagrams: 12/02/18 04:33 12/02/18 04:33 - Vital Signs Blood Pressure: 110/77 Heart Rate: 58 Respiratory Rate: 14 O2 Sat (%): 98 Height: 170.18 cm Weight: 63.304 kg ANE Physical Exam - Airway Neck exam: FROM Mallampati Score: Class 2 Mouth exam: normal dental/mouth exam - Pulmonary Pulmonary: clear to auscultation - Cardiovascular Cardiovascular: regular rate and rhythym - ASA Status ASA Status: III ANE Anesthesia Plan Anesthesia Plan: general endotracheal anesthesia
[2018-12-05] MEDS ORDERED: MIDAZOLAM 2 MG/2 ML VIAL ONE (16:42)
[2018-12-05] MEDS ORDERED: MIDAZOLAM 2 MG/2 ML VIAL IVP ONE (16:42)
[2018-12-05] MEDS ORDERED: KETOROLAC 30 MG/1 ML SDV ONE (16:46)
[2018-12-05] MEDS ORDERED: LIDOCAINE 2% 5 ML SDV ONE (16:46)
[2018-12-05] MEDS ORDERED: ROCURONIUM 100 MG/10 ML VIAL ONE (16:46)
[2018-12-05] MEDS ORDERED: fentaNYL 100 MCG/2 ML INJ ONE ×2 (16:46→19:09)
[2018-12-05] MEDS ORDERED: ONDANSETRON 4 MG/2 ML VIAL ONE ×2 (16:46→18:52)
[2018-12-05] MEDS ORDERED: DEXAMETHASONE 4 MG/ML VIAL ONE (16:46)
[2018-12-05] MEDS ORDERED: PROPOFOL/EMULSION 500 MG/50 ML BOTTLE IV ONE (16:46)
[2018-12-05] MEDS ORDERED: HYDROmorphONE/DILAUDID 2 MG/ML INJ ONE (17:41)
[2018-12-05] MEDS ORDERED: SUGAMMADEX SODIUM 200 MG/2 ML VIAL IVP ONE (17:50)
[2018-12-05] MEDS ORDERED: fentaNYL 100 MCG/2 ML INJ IVP PRN (17:56)
[2018-12-05] MEDS ORDERED: HYDROmorphONE/DILAUDID 2 MG/ML INJ IVP PRN (17:56)
[2018-12-05] MEDS ORDERED: METOCLOPRAMIDE 10 MG/2 ML VIAL IVP PRN (17:56)
[2018-12-05] MEDS ORDERED: LR 500 ML IV PRN (17:56)
[2018-12-05] MEDS ORDERED: NALOXONE HCL 0.4 MG/ML INJ IVP PRN (17:56)
[2018-12-05] MEDS ORDERED: ALBUTEROL 3 ML DEYVIAL IH PRN (17:56)
--- NOTE | 2018-12-05 18:08 | POSTOPPROG ---
Post Op Note Date of Operation: 12/05/18 Surgeon: Jaye Zhao Anesthesiologist: topete Anesthesia: GET(General Endotracheal) Pre-op Diagnosis: chronic cholecystitis Post-op Diagnosis: same Indication: 53 yo with chronic cholecystitis and ruq pain Procedure: lap cornelia Findings: inflamed gb, thickened wall Inf/Abcess present in the surg proc area at time of surgery?: Yes Depth: Organ Space (ascites) EBL: Minimal Specimen(s): gallbladder
--- NOTE | 2018-12-05 18:47 | GOP ---
[f rep st] OPERATIVE REPORT DATE OF OPERATION: 10/07/2018 SURGEON: Jaye Zhao MD ANESTHESIOLOGIST: Dr. Estrella Desai PREOPERATIVE DIAGNOSIS: Chronic cholecystitis with right upper quadrant pain. POSTOPERATIVE DIAGNOSIS: Chronic cholecystitis with right upper quadrant pain. PROCEDURE PERFORMED: Laparoscopic cholecystectomy. FINDINGS: Thickened gallbladder wall. SPECIMENS: Peritoneal fluid for culture. Gallbladder for permanent. ESTIMATED BLOOD LOSS: 25 cc. INDICATIONS: The patient is a 53-year-old woman who was admitted for other reasons and then developed right upper quadrant pain. Ultrasound was obtained, which showed a thickened gallbladder wall without stones. HIDA scan was obtained, which also showed evidence of chronic cholecystitis. DESCRIPTION OF PROCEDURE: Patient was brought into the operating room, placed supine on the table, and general anesthesia was administered. Her abdomen was prepped and draped in the usual sterile fashion. I infiltrated all sites with 0.5% Marcaine prior to making incisions. I made an incision superior to her umbilicus as she had a previous umbilical hernia repair with mesh. I elevated it. I inserted the Veress needle, it passed the hanging drop test. Her abdomen insufflated easily to a pressure of 15 mmHg. I placed a 5 mm trocar with a camera at this site. There were no injuries from Veress needle placement. Under direct vision, I placed a 10 mm subxiphoid trocar and two 5 mm trocars along the right costal margin. Upon entering the abdomen, there was quite a bit of pain peritoneal fluid along the liver margin. I suctioned this and sent this for microbiology. I lifted the gallbladder cephalad and laterally to expose the triangle of Calot and skeletonized the cystic artery and cystic duct. There was a filmy tissue over the cystic duct, which I also clipped and divided with scissors. I then could see that the cystic artery and cystic duct were the only 2 structures directly entering the gallbladder. They were each singly clipped proximally, doubly clipped distally, and transected with scissors. I began removing the gallbladder from the gallbladder fossa with electrocautery. I encountered a posterior cystic artery, which I then clipped as well. I continued removing the gallbladder from the gallbladder fossa. I placed it in an EndoCatch bag and retrieved it via the 10 mm trocar. This had to be dilated slightly to accommodate the gallbladder. There was oozing from the liver bed and hemostasis achieved with electrocautery. I then placed Arnie 3 g. Ports were removed under direct vision. Abdomen allowed to desufflate. Fascia at the 10 mm trocar site was closed with 0 Vicryl. Skin closed with 4-0 Monocryl. Dermabond applied. She was awakened in the operating room, extubated , transferred to PACU in stable condition. /[id number]/MODL MTDD
[2018-12-05] MEDS ORDERED: PROMETHAZINE HCL 25 MG/ML INJ ONE (19:00)
[2018-12-05] MEDS: PROMETHAZINE HCL 25 MG/ML INJ IVP PRN ×2 (19:03→19:15)
--- NOTE | 2018-12-05 19:08 | HOSPPROG ---
Hospitalist Progress Note Assessment/Plan: DIAGNOSES: * Chronic Cholecystitis is indicated by sx's, exam, imaging studies * Acute infectious vestibulitis with vertigo nausea vomiting: vertigo and vomiting resolved still some dizziness * Otitis media, complicated by tympanic membrane perforation and acute hearing loss left ear * Upper respiratory infection * Laryngitis, much improved * Iron deficiency anemia, mild. No noted bleeding, has history of ulcerative colitis and celiac disease on celiac diet, status post hysterectomy years ago. Unclear if this is due to GI losses or malabsorption. Has had endoscopies in not very distant past * hyyperthyroidism, chronic, on methimazole PLANS: * I have consulted Dr Zhao for gal bladder, pt to go to OR this evening * seen in ENT clinic 12/04, steroid dose increased to 60/d pred, abx changed to augmentin, will need close f/u with them in clinic * Recommend she follow up with her [employer] plans intelligence officer in the outpatient clinic to determine why she remains iron deficient and determine whether she can be treated with supplements or will need IV replacement, or if there is more specific or aggressive treatment needed for 1 of her bowel issues Seen by me on hospitals rounds and multidisciplinary rounds today reviewed in detail with Dr Jaye Zhao today SUBJECTIVE: Still w RUQ pain, some nausea but no vomiting, has had BM Still w earache, tinnitus and loss of hearing L ear, but less drainage today vertigo resolved, mild dizziness persists OBJECTIVE Vitals reviewed: Stable without fever Exam: alert oriented better energy today ambulates w ease skin warm dry color ok resps not labored lungs clear BSs heart regular Abdomen still w tenderness RUQ on exam, no rebound iv site ok Laboratory data: Order liver panel which is now been done and is normal Imaging: HIDA scan c/w chronic cholecystitis Objective: Vital Signs Temp Pulse Resp BP Pulse Ox 36.4 C 58 L 20 111/76 95 12/05/18 18:14 12/05/18 18:13 12/05/18 18:52 12/05/18 18:52 12/05/18 18:52 12/04/18 12/05/18 12/06/18 06:59 06:59 06:59 Intake Total 1900 2280 2100 Output Total 25 Balance 1900 2280 2074 - Time Spent With Patient Time Spent with Patient: greater than 35 minutes Time Spent with Patient: Greater than 35 minutes spent on this patients care, greater than 50% of time spent counseling, educating, and coordinating care regarding the above mentioned plan. ICD10 Worksheet Patient Problems: Problems Problem Status Onset Dysfunction of left eustachian tube Acute Intractable nausea and vomiting Acute Vertigo of central origin of left ear Acute
[2018-12-05] MEDS ORDERED: METOCLOPRAMIDE 10 MG/2 ML VIAL ONE (19:09)
[2018-12-05] MEDS: traMADol 50 MG TAB PO PRN (20:38)
[2018-12-05] MEDS: MELATONIN 3 MG TAB PO SCH (23:07)
[2018-12-06] MEDS: HYDROmorphONE/DILAUDID 1 MG/ML INJ IVP PRN ×3 (00:37→06:43)
[2018-12-06] MEDS: traMADol 50 MG TAB PO PRN ×2 (05:20→10:57)
[2018-12-06 08:21] VITALS: BP 109/69
[2018-12-06] MEDS: predniSONE 20 MG TAB PO SCH (09:31)
[2018-12-06] MEDS: AMOXICILLIN/CLAVULANATE POT 875/125 MG TAB PO SCH (09:32)
[2018-12-06] MEDS: ASPIRIN 81 MG CHEWABLE TAB PO SCH (09:32)
[2018-12-06] MEDS: MULTIVITAMINS 1 EACH TAB PO SCH (09:32)
[2018-12-06] MEDS: METHIMAZOLE 5 MG TAB PO SCH (09:32)
[2018-12-06] MEDS: ENOXAPARIN 40 MG/0.4 ML SYR SC SCH (09:33)
--- NOTE | 2018-12-06 10:11 | ASDISCHSUM ---
Discharge Information Plan Status:Home with No Needs Medically Cleared to Leave: Discharge Date: D/C Disposition:Home Health Service [facility] D/C Disposition:Home, Routine, Self-Care Projected Discharge Date: Transportation at D/C:Family Discharge Delay Reason: Follow-Up Date: Discharge Slot: Final Diagnosis: Placement Information Patient Contact Information Contact Name:LISETTE Relationship: Address:[address] City:[place] Alternate Phone: [facility] Code:[place] [address] Email: Financial Information Financial Class:LAILA Primary Plan Desc:LEILANI SEPULVEDA PPO Primary Plan Number:[id number] Secondary Plan Desc: Secondary Plan Number: Assessment Information LACE LACE Length of stay for Answers: 3 days current admission Acuity / Level of Answers: Yes Care: Did the patient have an inpatient admission? Comorbidities - select Answers: Other Notes: Hyperthyroid; Ulcerativ e all that apply colitis # of Emergency department Answers: 1-2 visits in the last 6 months Score: 8 Date Signed: 12/06/2018 10:10 AM Electronically Signed By:Noelle Urias [facility] Progress Note CM Note CM Note Notes: Patient plan of care reviewed in rounds. She is still symptomatic from her URI and ear infection. Refused am meclizine but still has some c/o dizziness, No current needs identified as she lives independent with her . Plan: Likely home no needs when medically cleared for discharge. Date Signed: 12/02/2018 12:28 PM Electronically Signed By:Doris Ferrari RN [facility] CM Progress Note CM Note CM Note Notes: Patient discussed in medical rounds. Imaging returned consistent with chronic cholecystitis resulting in lap/cornelia later today. CM to follow. Discharge plan: TBD Date Signed: 12/05/2018 04:08 PM Electronically Signed By:Loreto Mota Intervention Information
--- NOTE | 2018-12-06 10:19 | GDS ---
[f rep st] DISCHARGE SUMMARY DIAGNOSES: 1. Chronic cholecystitis, status post laparoscopic cholecystectomy by Dr. Zhao. 2. Acute infectious vestibulitis with vertigo, nausea, vomiting, currently on Augmentin. 3. Otitis media, complicated by tympanic membrane perforation and acute hearing loss. Follow up [facility]. 4. Iron-deficiency anemia, mild. Recent colonoscopy a few years ago, but will need to follow up neeraj h her primary care provider and possibly GI. 5. Hyperthyroidism, on methimazole, followed by Dr. Alvarez. CONSULTATIONS: Include Dr. Zhao and ENT, for which she had a clinic visit during this hospitalizati on. PROCEDURES DONE: 1. Laparoscopic cholecystectomy. 2. Head CT without contrast. 3. Hepatic abdominal ultrasound and HIDA scan. HOSPITAL COURSE: The patient is a very nice 53-year-old who came in initially for vertigo. This was quite debilitating and after evaluation, she was found to have a left otitis media with a perforated membrane. ENT saw her in the clinic and recommended steroids and Augmentin for antibiotics. Caty osorio, prior to discharge from that, she developed increasing nausea, vomiting and abdominal pain. Evalu ation included the above procedures, which resulted in diagnosis of chronic cholecystitis. She under went laparoscopic cholecystectomy on 12/05/2018, with good result and is ready to go home postoperati vely. CONDITION ON DISCHARGE: Good. Her vertigo is almost completely resolved. Her vital signs are stabl e. DISCHARGE MEDICATIONS: Please see discharge medication form. FOLLOWUP: 1. She will follow up with Dr. Gomez, her PCP this week to discuss her iron-deficiency anemia and f or followup hospitalization. 2. Follow up with [facility] this week for her left otitis media and perforated TM. 3. Follow up with Dr. Zhao in 10-14 days for her laparoscopic cholecystectomy postop. Total time spent with patient on day of discharge and coordination of care is 35 minutes. /[id number]/MODL
== END 2018-12-06 11:36 | disposition home or self-care (01) | DRG 989 ==
LOC: EDUNIT# → F1N 12-02 00:22 → OBSVTOIN 12-02 18:14
PROVIDERS: ADMIT Student in an Organized Health Care Education/Training Program; ATTEND Internal Medicine
PROC: 0FT44ZZ Resection of Gallbladder, Percutaneous Endoscopic Approach (ICD-10-PCS; principal; 2018-12-05 16:30)
DX: H83.02 Labyrinthitis, left ear (principal); H66.92 Otitis media, unspecified, left ear; H72.92 Unspecified perforation of tympanic membrane, left ear; K81.1 Chronic cholecystitis; J04.0 Acute laryngitis; J06.9 Acute upper respiratory infection, unspecified; D50.9 Iron deficiency anemia, unspecified; E05.90 Thyrotoxicosis, unspecified without thyrotoxic crisis or storm; K90.0 Celiac disease; Z23 Encounter for immunization
CPT/HCPCS: 96374; 97161-GP; A9537; G0008; G0378; J0690; J1100; J1170; J1650; J1885; J2060; J2250; J2270; J2405; J2550; J2704; J2765; J3010; J7512

== ENCOUNTER 2018-12-08 12:10 | Emergency (ER) | payer OTHER | END 2018-12-08 14:23 | disposition home or self-care (01) ==